=== PATIENT | male | born 1965 | race African-American/Black ===

== ENCOUNTER 2023-01-05 22:28 | Emergency (ER) | payer SELFPAY ==
[~2023-01-05 22:28] MED LIST: Iopamidol 300 61% 100 ML VIAL FS ONE
[2023-01-05 23:31] LABS: #Eosinphils 0.3 10x3/uL (0.0-0.5); #Monocytes 0.4 10x3/uL (0.0-1.1); %Basophils 0.5 % (0.0-2.0); %Eosinophils 7.8 % (0.0-6.0); %Lymphocytes 30.9 % (18.0-47.0); %Monocytes 9.6 % (0.0-10.0); %Neutrophils 51.2 % (40.0-75.0); Hemoglobin 11.7 g/dL (13.5-17.5); Mean Corpuscular HGB CONC 32.1 g/dL (32.0-36.0); Mean Corpuscular Hemoglobin 29.9 pg (27.0-33.0); Mean Corpuscular Volume 93.1 fl (81.2-95.1); Mean Platelet Volume 11.5 fl (7.4-10.4); Platelet Count 189 10x3/uL (150-450); RBC Distribution Width 13.6 % (11.5-14.5); Red Blood Cell (RBC) Count 3.91 10x6/uL (4.32-5.72); White Blood Cell (WBC) Count 3.9 10x3/uL (3.5-10.5)
[2023-01-05 23:42] LABS: ALT (SGPT) 21 U/L (8-55); AST (SGOT) 26 U/L (5-34); Albumin 3.4 g/dL (3.5-5.0); Alkaline Phosphatase 56 U/L (40-110); Anion Gap 12 mmol/L (10-20); BUN (Urea Nitrogen) 12 mg/dL (8.4-25.7); Bilirubin, Total 0.2 mg/dL (0.2-1.2); Calc. Creatinine Clearance 0 mL/min (70-130); Calcium 8.3 mg/dL (7.8-10.44); Carbon Dioxide 25 mmol/L (22-29); Chloride 106 mmol/L (98-107); Estimated GFR 88; Globulin 2.9 g/dL (2.4-3.5); Glucose 91 mg/dL (70-105); Lipase 23 U/L (8-78); Potassium 3.7 mmol/L (3.5-5.1); Protein, Total 6.3 g/dL (6.0-8.3); Sodium 139 mmol/L (136-145)
== END 2023-01-06 00:25 | disposition home or self-care (01) ==
LOC: CSHERS 22:28
DX: R10.13 Epigastric pain (principal); R16.0 Hepatomegaly, not elsewhere classified; F17.210 Nicotine dependence, cigarettes, uncomplicated
CPT/HCPCS: 74177; 80053; 83690; 85025; 93005; Q9967

== ENCOUNTER 2024-03-18 04:48 | Emergency (ER) | payer BC, SELFPAY ==
[2024-03-18] MEDS ORDERED: Piperacillin/Tazobactam 3.375 GM VIAL ONE (08:59)
[2024-03-18] MEDS ORDERED: Ketorolac Tromethamine 30 MG (1 mL) VIAL ONE (08:59)
[2024-03-18] MEDS ORDERED: Acetaminophen 500 MG TAB ONE (12:01)
== END 2024-03-18 06:23 | disposition left against medical advice (07) ==
LOC: CSHERS 04:48
DX: Z53.21 Procedure and treatment not carried out due to patient leaving prior to being seen by health care provider (principal)
CPT/HCPCS: J1885; J2543

== ENCOUNTER 2024-03-18 08:21 | Emergency (ER) | payer BC ==
[2024-03-18 10:32] LABS: #Basophils 0.02 10x3/uL (0.0-0.2); #Eosinphils 0.01 10x3/uL (0.0-0.5); #Monocytes 0.75 10x3/uL (0.0-1.1); #Neutrophils 4.78 10x3/uL (1.5-8.4); %Basophils 0.3 % (0.0-2.0); %Eosinophils 0.1 % (0.0-6.0); %Neutrophils 70.5 % (40.0-75.0); Hematocrit 39.1 % (38.8-50.0); Hemoglobin 12.9 g/dL (13.5-17.5); Mean Corpuscular Hemoglobin 30.2 pg (27.0-33.0); Mean Corpuscular Volume 91.6 fl (81.2-95.1); Mean Platelet Volume 11.3 fl (7.4-10.4); Platelet Count 205 10x3/uL (150-450); RBC Distribution Width 13.3 % (11.5-14.5); Red Blood Cell (RBC) Count 4.27 10x6/uL (4.32-5.72); White Blood Cell (WBC) Count 6.8 10x3/uL (3.5-10.5)
[2024-03-18 11:41] LABS: ALT (SGPT) 15 U/L (8-55); AST (SGOT) 15 U/L (5-34); Albumin 3.2 g/dL (3.5-5.0); Alkaline Phosphatase 68 U/L (40-110); Anion Gap 14 mmol/L (10-20); BUN (Urea Nitrogen) 12 mg/dL (8.4-25.7); Bilirubin, Total 0.3 mg/dL (0.2-1.2); Calc. Creatinine Clearance 0 mL/min (70-130); Calcium 9.1 mg/dL (7.8-10.44); Carbon Dioxide 25 mmol/L (22-29); Chloride 105 mmol/L (98-107); Estimated GFR 85; Globulin 3.7 g/dL (2.4-3.5); Glucose 100 mg/dL (70-105); Potassium 4.3 mmol/L (3.5-5.1); Protein, Total 6.9 g/dL (6.0-8.3); Sodium 140 mmol/L (136-145)
== END 2024-03-18 12:07 | disposition home or self-care (01) ==
LOC: CSHERS 08:21
DX: K04.7 Periapical abscess without sinus (principal); Z53.21 Procedure and treatment not carried out due to patient leaving prior to being seen by health care provider
CPT/HCPCS: 36415; 80053; 83605; 85025; 87040; 96365; 96375; J1885; J2543

== ENCOUNTER 2024-04-12 15:24 | Emergency (ER) | payer BC ==
[2024-04-12] MEDS ORDERED: Ketorolac Tromethamine 30 MG (1 mL) VIAL ONE (15:54)
[2024-04-12] MEDS ORDERED: Ondansetron PF 4 MG/2 ML Vial ONE (15:54)
[2024-04-12 16:15] LABS: #Basophils 0.02 10x3/uL (0.0-0.2); #Eosinphils 0.13 10x3/uL (0.0-0.5); #Neutrophils 4.94 10x3/uL (1.5-8.4); %Basophils 0.3 % (0.0-2.0); %Eosinophils 1.9 % (0.0-6.0); %Lymphocytes 16.6 % (18.0-47.0); %Neutrophils 70.9 % (40.0-75.0); Hematocrit 41.1 % (38.8-50.0); Hemoglobin 13.6 g/dL (13.5-17.5); Mean Corpuscular HGB CONC 33.1 g/dL (32.0-36.0); Mean Corpuscular Hemoglobin 30.5 pg (27.0-33.0); Mean Corpuscular Volume 92.2 fL (81.2-95.1); Mean Platelet Volume 10.5 fL (7.4-10.4); Platelet Count 230 10x3/uL (150-450); RBC Distribution Width 13.2 % (11.5-14.5); Red Blood Cell (RBC) Count 4.46 10x6/uL (4.32-5.72)
[2024-04-12 16:32] LABS: ALT (SGPT) 21 U/L (8-55); AST (SGOT) 20 U/L (5-34); Alkaline Phosphatase 80 U/L (40-110); Anion Gap 11 mmol/L (10-20); BUN (Urea Nitrogen) 11 mg/dL (8.4-25.7); Bilirubin, Total 0.2 mg/dL (0.2-1.2); Calc. Creatinine Clearance 0 mL/min (70-130); Calcium 8.6 mg/dL (7.8-10.44); Carbon Dioxide 26 mmol/L (22-29); Chloride 105 mmol/L (98-107); Estimated GFR 84; Globulin 3.7 g/dL (2.4-3.5); Glucose 94 mg/dL (70-105); Lipase 25 U/L (8-78); Potassium 3.7 mmol/L (3.5-5.1); Protein, Total 6.7 g/dL (6.0-8.3); Sodium 138 mmol/L (136-145)
[2024-04-12 16:46] LABS: Bilirubin Neg (Negative); Blood, Urine Negative (Negative); Clarity Clear (Clear); Glucose, Urine (Dipstick) Normal (Negative); Ketone, Urine Negative (Negative); Leukocyte Negative (Negative); Nitrite Negative (Negative); Protein, Urine (Dipstick) 15 mg/dl (Neg-Trace); Specific Gravity, Urine 1.015 (1.005-1.030); Urobilinogen Normal mg/dL (Less than 2); pH, Urine 6.5 (5.0-9.0)
[2024-04-12 17:09] LABS: CAUTI Indications for Culture Pelvic or flank pain; RBC/HPF 0-3 HPF (0-3); Squamous Epithelial None Seen HPF (0-3); WBC/HPF 0-3 HPF (0-3)
[2024-04-12 17:10] LABS: Bacteria/HPF Rare-Few HPF (None Seen); Mucous/LPF 1+ LPF (<2+); Urine Culture Reflex No No
== END 2024-04-12 17:24 | disposition home or self-care (01) ==
LOC: CSHERS 15:24
DX: R19.7 Diarrhea, unspecified (principal); F17.290 Nicotine dependence, other tobacco product, uncomplicated
CPT/HCPCS: 80053; 81001; 83690; 85025; 93005; 96361; 96374; 96375; J1885; J2405

== ENCOUNTER 2024-09-19 09:57 | Emergency (ER) | payer BC ==
[2024-09-19] MEDS ORDERED: Mag-Al 1200 mg/1200 mg/30 ML UDCUP ONE (10:25)
[2024-09-19] MEDS ORDERED: Proparacaine 0.5% Opth 15 ML BOT ONE (10:26)
[2024-09-19] MEDS ORDERED: Fluorescein Opthalmic Strip ONE (10:48)
== END 2024-09-19 11:23 | disposition home or self-care (01) ==
LOC: CSHERS 09:57
DX: T22.212A Burn of second degree of left forearm, initial encounter (principal); T31.0 Burns involving less than 10% of body surface; F17.290 Nicotine dependence, other tobacco product, uncomplicated; Z55.6 Problems related to health literacy; X13.1XXA Other contact with steam and other hot vapors, initial encounter; Y99.0 Civilian activity done for income or pay
CPT/HCPCS: 99283

== ENCOUNTER 2024-11-28 06:47 | Emergency (ER) | payer BC ==
[2024-11-28] MEDS ORDERED: HYDROcodone/Acetaminophen 10/325 mg Tablet ONE (07:17)
[2024-11-28] MEDS ORDERED: AMOXicillin 250 MG CAP PO SCH (07:45)
== END 2024-11-28 08:14 | disposition home or self-care (01) ==
LOC: CSHERS 06:47
DX: K02.9 Dental caries, unspecified (principal); F17.290 Nicotine dependence, other tobacco product, uncomplicated
CPT/HCPCS: 99282